=== PATIENT | male | born 1985 | race Two or more races ===

== ENCOUNTER 2016-10-15 14:18 | Emergency (ER) | payer OTHER ==
[2016-10-15 14:56] VITALS: BP 123/75
--- NOTE | 2016-10-15 16:17 | RADIOLOGY REPORT (SQ) ---
EXAM DESCRIPTION: CT ABD/PELVIS NO ORAL OR IV COMPLETED DATE/TIME: 10/15/2016 4:03 pm REASON FOR STUDY: pain hematuria COMPARISON: None. TECHNIQUE: CT scan of the abdomen and pelvis performed without intravenous or oral contrast. Images reviewed with lung, soft tissue, and bone windows. Reconstructed coronal and sagittal MPR images revi ewed. All images stored on PACS. All CT scanners at this facility use dose modulation, iterative reconstruction, and/or weight based d osing when appropriate to reduce radiation dose to as low as reasonably achievable (ALARA). [facility]: Dose Right [facility]: CareDose [facility]: Dose Right [facility]: Teradose 4D [facility]: Smart [employer] RADIATION DOSE: Up-to-date CT equipment and radiation dose reduction techniques were employed. CTDIv ol: 6.0 mGy. DLP: 337 mGy-cm.mGy. LIMITATIONS: None. FINDINGS: LOWER CHEST: No significant findings. No nodules or infiltrates. NON-CONTRASTED LIVER, SPLEEN, ADRENALS: Evaluation limited by lack of IV contrast. No identified sign ificant masses. PANCREAS: No masses. No peripancreatic inflammatory changes. GALLBLADDER: No identified stones by CT criteria. No inflammatory changes to suggest cholecystitis. RIGHT KIDNEY AND URETER: No suspicious masses. Assessment limited by lack of IV contrast. No signif icant calcifications. No hydronephrosis or hydroureter. LEFT KIDNEY AND URETER: No suspicious masses. Assessment limited by lack of IV contrast. No signifi cant calcifications. No hydronephrosis or hydroureter. AORTA AND RETROPERITONEUM: No aneurysm. No retroperitoneal masses or adenopathy. BOWEL AND PERITONEAL CAVITY: No obvious masses or inflammatory changes. No free fluid. APPENDIX: Normal. PELVIS, BLADDER, AND ABDOMINAL WALL:No abnormal masses. No free fluid. Bladder normal. BONES: No significant findings. OTHER: No other significant finding. IMPRESSION: NO SIGNIFICANT OR ACUTE PROCESS IN THE ABDOMEN OR PELVIS. TECHNICAL DOCUMENTATION: JOB ID: [id number] Quality ID # [id number]: Final reports with documentation of one or more dose reduction techniques (e.g., Au tomated exposure control, adjustment of the mA and/or kV according to patient size, use of iterative reconstruction technique) 2010 [employer]- All Rights Reserved
[2016-10-15 16:24] LABS: AMORPHOUS SEDIMENT,URINE TRACE /HPF; APPEARANCE,URINE SLIGHTLY-CLOUDY; BILIRUBIN,URINE NEGATIVE (NEGATIVE); GLUCOSE, URINE NEGATIVE (NEGATIVE); KETONES,URINE NEGATIVE (NEGATIVE); LEUKOCYTE ESTERASE,URINE LARGE (NEGATIVE); NITRITE,URINE NEGATIVE (NEGATIVE); PROTEIN,URINE NEGATIVE (NEGATIVE); URINE SPECIFIC GRAVITY 1.009; UROBILINOGEN,URINE NEGATIVE mg/dL (<2.0)
[2016-10-15 16:30] LABS: URINE BARBITURATES SCREEN NEGATIVE; URINE METHADONE SCREEN NEGATIVE; URINE OPIATES LOW NEGATIVE; URINE PHENCYCLIDINE SCREEN NEGATIVE
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
[2016-10-15] MEDS ORDERED: CEFTRIAXONE INJ 1000 MG VIAL IM ONE (19:21)
[2016-10-15] MEDS ORDERED: AZITHROMYCIN 250 MG TABLET PO ONE (19:22)
== END 2016-10-15 20:17 | disposition home or self-care (01) ==
LOC: ER 14:18
DX: S30.1XXA Contusion of abdominal wall, initial encounter (principal); N39.0 Urinary tract infection, site not specified; R31.9 Hematuria, unspecified; R11.10 Vomiting, unspecified; F17.200 Nicotine dependence, unspecified, uncomplicated; Y04.2XXA Assault by strike against or bumped into by another person, initial encounter; Y92.143 Cell of prison as the place of occurrence of the external cause; Z88.6 Allergy status to analgesic agent
CPT/HCPCS: 99284; 96372; 81001; 80307; 74176; 74177; J0696

== ENCOUNTER 2017-12-17 04:20 | Emergency (ER) | payer SELFPAY ==
[2017-12-17 07:39] VITALS: BP 126/81
== END 2017-12-17 09:10 | disposition left against medical advice (07) ==
LOC: ER 04:20
DX: Z53.21 Procedure and treatment not carried out due to patient leaving prior to being seen by health care provider (principal)

== ENCOUNTER 2017-12-30 23:21 | Emergency (ER) | payer SELFPAY ==
[2017-12-31] MEDS ORDERED: NORMAL SALINE 1000 ML 1,000 ML IV ONE (00:18)
[2017-12-31] MEDS ORDERED: FENTANYL CITRATE INJ/PF 100 MCG/2 ML AMPUL IV ONE (00:24)
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
[2017-12-31 01:21] LABS: ABSOLUTE BASOPHILS # (AUTO) 0.1 10^3/uL (0.0-0.2); ABSOLUTE EOSINOPHILS # (AUTO) 0.2 10^3/uL (0.0-0.6); ABSOLUTE LYMPHOCYTES (AUTO) 2.3 10^3/uL (0.5-4.7); ABSOLUTE MONOCYTES (AUTO) 0.6 10^3/uL (0.1-1.4); ABSOLUTE NEUT (AUTO) 3.3 10^3/uL (1.7-8.2); BASOPHILS % (AUTO) 1.2 % (0-2); EOSINOPHILS % (AUTO) 3.5 % (0-6); HEMATOCRIT 43.1 % (37.9-51.0); HEMOGLOBIN 14.6 g/dL (13.5-17.0); LYMPHOCYTES % (AUTO) 35.7 % (13-45); MEAN CORPUSCULAR HEMOGLOBIN 31.3 pg (27.0-33.4); MEAN CORPUSCULAR HGB CONC 33.9 g/dL (32.0-36.0); MEAN CORPUSCULAR VOLUME 92 fl (80-97); MONOCYTES % (AUTO) 9.6 % (3-13); PLATELET COUNT 259 10^3/uL (150-450); RED BLOOD COUNT 4.67 10^6/uL (4.35-5.55); RED CELL DISTRIBUTION WIDTH 14.7 % (11.5-14.0); TOTAL CELLS COUNTED % (AUTO) 100 %; WHITE BLOOD COUNT 6.5 10^3/uL (4.0-10.5)
[2017-12-31 01:35] LABS: ALANINE AMINOTRANSFERASE 332 U/L (21-72); ALBUMIN 4.5 g/dL (3.5-5.0); ALKALINE PHOSPHATASE 61 U/L (38-126); ANION GAP 6 (5-19); ASPARTATE AMINO TRANSFERASE 152 U/L (17-59); BILIRUBIN,DIRECT 0.5 mg/dL (0.0-0.4); BILIRUBIN,TOTAL 0.9 mg/dL (0.2-1.3); BLOOD UREA NITROGEN 17 mg/dL (7-20); CALCIUM 9.2 mg/dL (8.4-10.2); CARBON DIOXIDE 32 mmol/L (22-30); CHLORIDE 104 mmol/L (98-107); GLUCOSE 54 mg/dL (75-110); POTASSIUM 4.7 mmol/L (3.6-5.0); SODIUM 141.7 mmol/L (137-145); TOTAL PROTEIN 7.6 g/dL (6.3-8.2)
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
[2017-12-31 04:53] LABS: APPEARANCE,URINE SLIGHTLY-CLOUDY; BILIRUBIN,URINE NEGATIVE (NEGATIVE); COLOR,URINE YELLOW; GLUCOSE, URINE NEGATIVE (NEGATIVE); KETONES,URINE NEGATIVE (NEGATIVE); LEUKOCYTE ESTERASE,URINE LARGE (NEGATIVE); NITRITE,URINE NEGATIVE (NEGATIVE); PROTEIN,URINE NEGATIVE (NEGATIVE); UROBILINOGEN,URINE NEGATIVE mg/dL (<2.0)
[2017-12-31 04:54] LABS: URINE SPECIFIC GRAVITY > 1.060
[2017-12-31 07:29] VITALS: BP 112/68
[2018-01-01 06:38] LABS: HEPATITIS A AB IGM Negative (Negative); HEPATITIS B CORE AB IGM Negative (Negative); HEPATITS B SURFACE ANTIGEN Negative (Negative)
[2018-01-01 07:14] LABS: HEPATITIS C VIRUS ANTIBODY >11.0 s/co ratio (0.0-0.9)
== END 2017-12-31 05:50 | disposition home or self-care (01) ==
LOC: ER 23:21
DX: S37.011A Minor contusion of right kidney, initial encounter (principal); R74.8 Abnormal levels of other serum enzymes; R10.31 Right lower quadrant pain; M25.561 Pain in right knee; V28.4XXA Motorcycle driver injured in noncollision transport accident in traffic accident, initial encounter; Z88.6 Allergy status to analgesic agent; F17.200 Nicotine dependence, unspecified, uncomplicated
CPT/HCPCS: 99284; 96360; 96361; 36415; 85025; 80053; 81001; 80074; 71045; 73564; 74177; J3010; J7030

== ENCOUNTER 2018-01-24 09:48 | Emergency (ER) | payer SELFPAY ==
[2018-01-24] MEDS ORDERED: DEXTROSE 5%-WATER 250 ML with NOREPINEPHRINE BITARTRATE 4 MG IV PRN ×2 (10:10)
[2018-01-24] MEDS ORDERED: DEXTROSE 5%-WATER 250 ML with PHENYLEPHRINE HCL 40 MG IV PRN ×2 (10:11)
[2018-01-24] MEDS ORDERED: PHENYLEPHRINE HCL INJ/PF 10 MG/1 ML SDV ONE (10:27)
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
[2018-01-24 11:09] LABS: HEMATOCRIT 41.2 % (37.9-51.0); HEMOGLOBIN 12.8 g/dL (13.5-17.0); MEAN CORPUSCULAR HEMOGLOBIN 31.5 pg (27.0-33.4); MEAN CORPUSCULAR HGB CONC 31.1 g/dL (32.0-36.0); PLATELET COUNT 199 10^3/uL (150-450); RED BLOOD COUNT 4.07 10^6/uL (4.35-5.55); WHITE BLOOD COUNT 12.3 10^3/uL (4.0-10.5)
[2018-01-24 11:11] LABS: MEAN CORPUSCULAR VOLUME 101 fl (80-97)
[2018-01-24 11:12] LABS: APPEARANCE,URINE SLIGHTLY-CLOUDY; BILIRUBIN,URINE NEGATIVE (NEGATIVE); COLOR,URINE YELLOW; GLUCOSE, URINE NEGATIVE (NEGATIVE); KETONES,URINE NEGATIVE (NEGATIVE); LEUKOCYTE ESTERASE,URINE NEGATIVE (NEGATIVE); NITRITE,URINE NEGATIVE (NEGATIVE); PROTEIN,URINE 30 mg/dL (NEGATIVE); URINE SPECIFIC GRAVITY 1.028
[2018-01-24 11:16] LABS: ABSOLUTE LYMPHOCYTES# (MANUAL) 8.7 10^3/uL (0.5-4.7); ABSOLUTE MONOCYTES # (MANUAL) 0.6 10^3/uL (0.1-1.4); ABSOLUTE NEUTROPHILS# (MANUAL) 2.8 10^3/uL (1.7-8.2); BAND NEUTROPHILS % (MANUAL) 5 % (3-5); BASOPHILS % (MANUAL) 0 % (0-2); EOSINOPHILS % (MANUAL) 1 % (0-6); METAMYELOCYTES % (MANUAL) 2 % (0); MONOCYTES % (MANUAL) 5 % (3-13); PLATELET COMMENT ADEQUATE; POIKILOCYTOSIS 2+; SEGMENTED NEUTROPHILS % (MAN) 16 % (42-78); TOTAL CELLS COUNTED 100; TOXIC GRANULATION SLIGHT; TOXIC VACUOLATION PRESENT
[2018-01-24 11:17] LABS: BURR CELLS SLIGHT; OVALOCYTES 1+; SCHISTOCYTES SLIGHT
--- NOTE | 2018-01-24 11:17 | ER Document Report ---
ED General - General Chief Complaint: Overdose Stated Complaint: POSSIBLE OVERDOSE Time Seen by Provider: 01/24/18 10:09 Mode of Arrival: Medic Information source: Emergency Med Personnel Cannot obtain history due to: Intubated TRAVEL OUTSIDE OF THE [place] IN LAST 30 DAYS: No - HPI Patient complains to provider of: unresponsive Onset: Other - 32-year-old man that presents after being found down with an unknown downtime of up to 1 hour unresponsive with no pulse at which time CPR was initiated. He also received 20 total milligrams of Narcan prior to arrival, he was found to be in asystolic rhythm with a subsequent conversion to a V tach rhythm which she was shocked for, he subsequently received 6 rounds of epinephrine, multiple shocks, initiated levophed infusion, and then was transported with a Shahbaz airway in place. - Related Data Allergies/Adverse Reactions: codeine [Codeine] Allergy (Verified 04/19/15 10:54) hydrocodone bitartrate [From Vicodin] Allergy (Verified 04/19/15 10:54) Past Medical History - General Information source: Emergency Med Personnel Cannot obtain history due to: Intubated - Social History Smoking Status: Unknown if Ever Smoked Family History: Arthritis, CVA, Hypertension, Malignancy, Other - grandmoother with CHF- Neurological Medical History: Reports: Hx Migraine - cluster Renal/ Medical History: Denies: Hx Peritoneal Dialysis Musculoskeletal Medical History: Reports Hx Musculoskeletal Trauma Traumatic Medical History: Reports: Hx Fractures - hand Past Surgical History: Reports: Hx Orthopedic Surgery - acl repair right knee - Immunizations Immunizations up to date: Yes Hx Diphtheria, Pertussis, Tetanus Vaccination: Yes Review of Systems - Review of Systems -: Yes ROS unobtainable due to patient's medical condition Physical Exam - Vital signs Vitals: Pulse Ox 95 01/24/18 09:48 - General General appearance: Unresponsive In distress: None - HEENT Head: Normocephalic Conjunctiva: Normal Cornea: Other - No corneal reflex Extraocular movements intact: No Pupils: Dilated, Fixed -: bilateral: Nonreactive - Respiratory Respiratory status: Other - No spontaneously initiated breaths Chest status: Other Breath sounds: Rhonchi - Cardiovascular Rhythm: Regular Heart sounds: Normal auscultation Murmur: No - Abdominal Inspection: Normal Tenderness: Nontender - Back Back: Normal - Extremities General upper extremity: Normal inspection, Normal ROM General lower extremity: Normal inspection, Normal ROM - Neurological Neuro grossly intact: No [place] Coma Scale Eye Opening: None [place] Coma Scale Verbal: None Ana Coma Scale Motor: None Ana Coma Scale Total: 3 Speech: Other - Psychological Associated symptoms: Other - Unobtainable Course - Re-evaluation Re-evalutation: 01/24/18 14:59 This 32-year-old man presented for evaluation after being found with an unknown downtime. He received approximately 1 total hours of CPR including 20 mg of Narcan, several shocks, several rounds of epinephrine. He arrived on levo fed with a Shahbaz airway in place. He failed to demonstrate any appreciable purposeful movement over the hour under which she was going CPR as well as his several hours in the emergency department. Patient was brought emergently to the resuscitation room, he was placed on security monitor, subsequently after a large second gauge IV was placed in his right AC made determination to proceed with administration of large volume fluid resuscitation. Administered 2 L of normal saline IV. Subsequently transitioned the patient's levo fed titration upwards to 15 total. He was then transitioned from his Hsahbaz airway to definitive ET tube which is an 8 oh tube. The ET tube was placed and confirmed. An NG was subsequently placed as well. The patient was placed on ventilator SIMV setting with a pressure is her and volume control of 450 mL tidal volume at a rate of 12 initially. Venous blood gas demonstrated the patient was profoundly acidotic and hypercarbic likely because of his prolonged downtime. Increased patient's rate from 12-16 as well as from 450-500 on his tidal volumes. His repeat gas demonstrated improvement. The patient's blood pressure continued to downward trend and was persistently in in hypotensive range as such initiated treatment also with neosynephrine given that I likely think this is systemic distributive shock Obtained patient's previous visit record which demonstrated that he does have a as next of kin, attempted to contact his phone number listed for his , it was a different person. Attempted to contact the other number provided which was previously the patient' s without any answer. Contacted [place] [employer] to do a well-being check at his house, they arrived at the house and asked neighbors about it they note that what sounds like his lives there but she is not there at this time and likely will be back until 5 PM. Also noted some alternative address listed for him previously which 1 of the [place] police officers will attempt to go to to contact his . During this time I contacted [facility] as this patient is demonstrating a profound respiratory acidosis as a result of his arrest, I spoke with Dr. Estrada he states that patient is likely brain and volume in agreement I am uncertain how to proceed at this time given that his next of kin has not been able to be identified. I spoke to our on-call hospitalist who notes that without neurology in house he feels uncomfortable considering this patient for brain testing. As such she thinks that it is most appropriate for this patient undergo transfer to a higher level of care. Given that we are in agreement with this will contact [facility] again. During this time the patient began to demonstrate hypothermia likely as a result of a profound diarrhea which she had started to develop including bloody diarrhea. He has had a profuse persistent bloody and watery diarrhea for several hours now , will plan for initiation of fecal control system. Patient is not required any sedation at this point continues to not demonstrate any purposeful movement. Have spoken to [facility] who agrees to accept this patient in transfer , Dr. TREVIÑO I agrees to receive this patient in the intensive care unit. At this time it is noted that his venous blood gas has improved from the 6.7 range to 7.15 range. His hypercarbia has improved. He continues to require both levo fed as well as Justino-Synephrine. He is still ventilated. His pupillary exam remains fixed and dilated he does not demonstrate any obvious corneal reflex gag or cough. His rectal output continues to be copious. WIll plan for administration of 2 L of NOrmal saline. Have added on COAG studies for possible DIC developing. WIll continue to titrate this patient for a MAP of >70 1550- Contacted [facility] transfer for potential timeline they note that there are 2 rooms currently being cleaned in the medical intensive care unit 1 of which will likely prolong this patient. - Vital Signs Vital signs: Temp Pulse Resp BP Pulse Ox 16 175/120 H 97 01/24/18 15:36 01/24/18 15:36 01/24/18 15:36 - Laboratory Result Diagrams: 01/24/18 09:49 01/24/18 09:49 Laboratory results interpreted by me: 01/24/18 01/24/18 01/24/18 09:49 09:49 09:49 WBC 12.3 H RBC 4.07 L Hgb 12.8 L MCV 101 H D MCHC 31.1 L RDW 15.0 H Seg Neuts % (Manual) 16 L Lymphocytes % (Manual) 70 H Metamyelocytes % 2 H Abs Lymphs (Manual) 8.7 H PT APTT D-Dimer VBG pH 6.73 L* VBG pCO2 131.9 H* VBG HCO3 17.2 L Carbon Dioxide 17 L Anion Gap 22 H Glucose 391 H AST 357 H ALT 350 H Total Protein 5.7 L Albumin 3.0 L Urine Protein Urine Urobilinogen Salicylates < 1.0 L Acetaminophen < 10 L 01/24/18 01/24/18 01/24/18 09:49 10:33 12:53 WBC RBC Hgb MCV MCHC RDW Seg Neuts % (Manual) Lymphocytes % (Manual) Metamyelocytes % Abs Lymphs (Manual) PT 16.1 H APTT 52.1 H D-Dimer 12.14 H VBG pH 7.12 L* VBG pCO2 72.6 H* VBG HCO3 Carbon Dioxide Anion Gap Glucose AST ALT Total Protein Albumin Urine Protein 30 H Urine Urobilinogen 2.0 H Salicylates Acetaminophen Procedures - Intubation Orotracheal Airway evaluation: Normal anatomy Mallampati Classification: Class 2 Intubation method: Orotracheal Blade type: [place] Blade size: 3 Equipment used: Glidescope ETT size: 8.0 ETT secured at: Teeth ETT secured at (cm): 27 Breath Sounds after Intubation: Equal End tidal CO2 confirmed: Yes Ventilator settings: SIMV Tidal volume: 450 FiO2: 50% Respirations: 12 Pressure support: 8 PEEP: 5 Post Intubation Xray: Yes Intubation Complications: No complications - Ultrasound/Bedside Ultrasound/Bedside Ultrasound: Other - FAST exam negative for free fluid or effusion Critical Care Note - Critical Care Note Total time excluding time spent on procedures (mins): 75 Discharge - Discharge Clinical Impression: Cardiac arrest, Hypoxic brain injury, Unresponsive Overdose Qualifiers: Encounter type: initial encounter Injury intent: undetermined intent Qualified Code(s): T50.904A - Poisoning by unspecified drugs, medicaments and biological substances, undetermined, initial encounter Hypothermia Qualifiers: Encounter type: initial encounter Qualified Code(s): T68.XXXA - Hypothermia, initial encounter Hypotension Qualifiers: Hypotension type: unspecified hypotension type Qualified Code(s): I95.9 - Hypotension, unspecified Condition: Critical Disposition: [facility]
[2018-01-24 11:18] LABS: LYMPHOCYTES % (MANUAL) 70 % (13-45)
[2018-01-24 11:19] LABS: BILIRUBIN,DIRECT 0.3 mg/dL (0.0-0.4); BILIRUBIN,TOTAL 0.5 mg/dL (0.2-1.3); BLOOD UREA NITROGEN 16 mg/dL (7-20); CALCIUM 8.4 mg/dL (8.4-10.2); GLUCOSE 391 mg/dL (75-110); TOTAL PROTEIN 5.7 g/dL (6.3-8.2)
[2018-01-24 11:24] LABS: CARBON DIOXIDE 17 mmol/L (22-30); CHLORIDE 102 mmol/L (98-107); SODIUM 140.8 mmol/L (137-145); VENOUS BLOOD BASE EXCESS -20.9 mmol/L; VENOUS BLOOD HCO3 17.2 mmol/L (20-32)
[2018-01-24 11:26] LABS: VENOUS BLOOD PCO2 131.9 mmHg (35-63); VENOUS BLOOD PH 6.73 (7.30-7.42)
--- NOTE | 2018-01-24 11:26 | RADIOLOGY REPORT (SQ) ---
EXAM DESCRIPTION: CT CERVICAL SPINE WITHOUT COMPLETED DATE/TIME: 01/24/2018 11:14 am REASON FOR STUDY: post cardiac arrest edema COMPARISON: None. TECHNIQUE: Axial images acquired through the cervical spine without intravenous contrast. Images re viewed with lung, soft tissue and bone windows. Reconstructed coronal and sagittal MPR images review ed. Images stored on PACS. All CT scanners at this facility use dose modulation, iterative reconstruction, and/or weight based d osing when appropriate to reduce radiation dose to as low as reasonably achievable (ALARA). [facility]: Dose Right [facility]: CareDose [facility]: Dose Right [facility]: Teradose 4D [facility]: [employer] RADIATION DOSE: CT Rad equipment meets quality standard of care and radiation dose reduction techniq ues were employed. CTDIvol: 21.3 mGy. DLP: 617 mGy-cm. mGy. LIMITATIONS: None. FINDINGS: ALIGNMENT: Anatomic. MINERALIZATION: Normal. VERTEBRAL BODIES: No fractures or dislocation. DISCS: No significant disc disease. FACETS, LATERAL MASSES, POSTERIOR ELEMENTS: No fractures. No dislocation. No acute findings. HARDWARE: None in the spine. VISUALIZED RIBS: No fractures. LUNG APICES AND SOFT TISSUES: There is dorsal opacification both lungs. OTHER: No other significant finding. IMPRESSION: 1. Normal cervical spine. 2. Dorsal airspace disease in both lungs. TECHNICAL DOCUMENTATION: JOB ID: [id number] Quality ID # [id number]: Final reports with documentation of one or more dose reduction techniques (e.g., Au tomated exposure control, adjustment of the mA and/or kV according to patient size, use of iterative reconstruction technique) 2010 [employer]- All Rights Reserved Reading location - IP/workstation name: [email or web address]
--- NOTE | 2018-01-24 11:27 | RADIOLOGY REPORT (SQ) ---
EXAM DESCRIPTION: CT HEAD WITHOUT COMPLETED DATE/TIME: 01/24/2018 11:14 am REASON FOR STUDY: post cardiac arrest edema COMPARISON: None. TECHNIQUE: Axial images acquired through the brain without intravenous contrast. Images reviewed wi th bone, brain and subdural windows. Additional sagittal and coronal reconstructions were generated. Images stored on PACS. All CT scanners at this facility use dose modulation, iterative reconstruction, and/or weight based d osing when appropriate to reduce radiation dose to as low as reasonably achievable (ALARA). [facility]: Dose Right [facility]: CareDose [facility]: Dose Right [facility]: Teradose 4D [facility]: [employer] RADIATION DOSE: CT Rad equipment meets quality standard of care and radiation dose reduction techniq ues were employed. CTDIvol: 53.2 mGy. DLP: 1044 mGy-cm. mGy. LIMITATIONS: None. FINDINGS: VENTRICLES: Normal size and contour. CEREBRUM: No masses. No hemorrhage. No midline shift. No evidence for acute infarction. Global poo r amato-white matter differentiation suspicious for cerebral hypoxia. CEREBELLUM: No masses. No hemorrhage. No alteration of density. No evidence for acute infarction. EXTRAAXIAL SPACES: No fluid collections. No masses. ORBITS AND GLOBE: No intra- or extraconal masses. Normal contour of globe without masses. CALVARIUM: No fracture. PARANASAL SINUSES: No fluid or mucosal thickening. SOFT TISSUES: No mass or hematoma. OTHER: No other significant finding. IMPRESSION: Concerning for cerebral hypoxia. No hemorrhage. EVIDENCE OF ACUTE STROKE: NO. COMMENT: Quality ID # [id number]: Final reports with documentation of one or more dose reduction techniques (e.g., Automated exposure control, adjustment of the mA and/or kV according to patient size, use of iterative reconstruction technique) TECHNICAL DOCUMENTATION: JOB ID: [id number] [employer]- All Rights Reserved Reading location - IP/workstation name: [email or web address]
[2018-01-24 11:32] LABS: ACETAMINOPHEN < 10 ug/mL (10-30); ALCOHOL < 10 mg/dL (NONE DETECTED); SALICYLATE < 1.0 mg/dL (2.0-20.0)
[2018-01-24 11:32] LABS: URINE BARBITURATES SCREEN NEGATIVE; URINE BENZODIAZEPINES SCREEN NEGATIVE; URINE COCAINE SCREEN UNCONFIRMED POSITIVE; URINE MARIJUANA (THC) SCREEN NEGATIVE; URINE METHADONE SCREEN NEGATIVE; URINE PHENCYCLIDINE SCREEN NEGATIVE
[2018-01-24 11:36] LABS: ALANINE AMINOTRANSFERASE 350 U/L (21-72); ALKALINE PHOSPHATASE 96 U/L (38-126); ASPARTATE AMINO TRANSFERASE 357 U/L (17-59); POTASSIUM 4.4 mmol/L (3.6-5.0)
[2018-01-24] MEDS ORDERED: RINGERS SOLUTION,LACTATED 1,000 ML IV ONE (11:38)
[2018-01-24 11:41] LABS: ANION GAP 22 (5-19)
[2018-01-24 11:42] LABS: CREATINE KINASE MB 3.37 ng/mL (<4.55)
[2018-01-24 11:44] LABS: TROPONIN I 0.055 ng/mL
--- NOTE | 2018-01-24 12:20 | RADIOLOGY REPORT (SQ) ---
EXAM DESCRIPTION: CHEST SINGLE VIEW COMPLETED DATE/TIME: 01/24/2018 11:57 am REASON FOR STUDY: NG TUBE PLACEMENT COMPARISON: EARLIER THE SAME DAY. NUMBER OF VIEWS: One view. TECHNIQUE: Single frontal radiographic image of the chest acquired. LIMITATIONS: None. FINDINGS: LUNGS AND PLEURA: Stable appearance. MEDIASTINUM AND HEART: Stable heart size and mediastinal structures. SUPPORT DEVICES: Nasogastric tube tip overlies the stomach. BONY STRUCTURES: No acute findings. HARDWARE: None. OTHER: No other significant finding. IMPRESSION: NASOGASTRIC TUBE IN THE STOMACH. Reading location - IP/workstation name: [email or web address]
--- NOTE | 2018-01-24 12:28 | EKG REPORT ---
SEVERITY:- ABNORMAL ECG - SINUS RHYTHM NONSPECIFIC INTRAVENTRICULAR CONDUCTION DELAY : Confirmed by: Samina Richardson MD 24-Jan-2018 12:27:43
[2018-01-24 13:17] LABS: VENOUS BLOOD BASE EXCESS -7.7 mmol/L; VENOUS BLOOD HCO3 23.1 mmol/L (20-32)
[2018-01-24 13:26] LABS: VENOUS BLOOD PCO2 72.6 mmHg (35-63); VENOUS BLOOD PH 7.12 (7.30-7.42)
[2018-01-24 13:42] LABS: INTERNATIONAL RATION (INR) 1.23; PROTHROMBIN TIME 16.1 SEC (11.4-15.4)
[2018-01-24 13:43] LABS: FIBRINOGEN 217 mg/dL (209-497); PARTIAL THROMBOPLASTIN TIME 52.1 SEC (23.5-35.8)
[2018-01-24 14:01] LABS: D-DIMER 12.14 ug/mL (0.00-0.50)
[2018-01-24] MEDS ORDERED: NORMAL SALINE 1000 ML 1,000 ML IV PRN (14:53)
[2018-01-24] MEDS ORDERED: NOREPINEPHRINE BITARTRATE INJ/PF 4 MG/4 ML SDV IV ONE ×2 (14:53→19:30)
[2018-01-24 15:39] LABS: HEMATOCRIT 49.9 % (37.9-51.0); MEAN CORPUSCULAR HEMOGLOBIN 31.5 pg (27.0-33.4); MEAN CORPUSCULAR HGB CONC 33.7 g/dL (32.0-36.0); PLATELET COUNT 273 10^3/uL (150-450); RED BLOOD COUNT 5.34 10^6/uL (4.35-5.55); RED CELL DISTRIBUTION WIDTH 14.1 % (11.5-14.0)
[2018-01-24 16:01] LABS: HEMOGLOBIN 16.8 g/dL (13.5-17.0)
[2018-01-24 16:02] LABS: MEAN CORPUSCULAR VOLUME 93 fl (80-97)
[2018-01-24 16:06] LABS: ABSOLUTE MONOCYTES # (MANUAL) 0.9 10^3/uL (0.1-1.4); ABSOLUTE NEUTROPHILS# (MANUAL) 26.1 10^3/uL (1.7-8.2); BAND NEUTROPHILS % (MANUAL) 9 % (3-5); BASOPHILS % (MANUAL) 0 % (0-2); EOSINOPHILS % (MANUAL) 0 % (0-6); LYMPHOCYTES % (MANUAL) 8 % (13-45); METAMYELOCYTES % (MANUAL) 1 % (0); MONOCYTES % (MANUAL) 3 % (3-13); SEGMENTED NEUTROPHILS % (MAN) 77 % (42-78); TOTAL CELLS COUNTED 100
[2018-01-24 16:08] LABS: ANISOCYTOSIS SLIGHT; PLATELET COMMENT ADEQUATE; TOXIC GRANULATION SLIGHT; TOXIC VACUOLATION PRESENT
[2018-01-24 16:10] LABS: OVALOCYTES SLIGHT; POIKILOCYTOSIS SLIGHT
[2018-01-24 18:15] LABS: VENOUS BLOOD BASE EXCESS -8.1 mmol/L; VENOUS BLOOD HCO3 19.2 mmol/L (20-32); VENOUS BLOOD PCO2 45.2 mmHg (35-63); VENOUS BLOOD PH 7.25 (7.30-7.42)
[2018-01-24 19:52] VITALS: BP 92/61
[2018-01-25 10:04] LABS: PATH REVIEW PATHOLOGIST REVIEWED
[2018-01-25 10:05] LABS: PATH REVIEW PATHOLOGIST REVIEWED
== END 2018-01-24 19:52 | disposition short-term general hospital (02) ==
LOC: ER 09:48
DX: I46.9 Cardiac arrest, cause unspecified (principal); S06.899A Other specified intracranial injury with loss of consciousness of unspecified duration, initial encounter; T68.XXXA Hypothermia, initial encounter; I95.9 Hypotension, unspecified; X58.XXXA Exposure to other specified factors, initial encounter; Y92.009 Unspecified place in unspecified non-institutional (private) residence as the place of occurrence of the external cause
CPT/HCPCS: 93005; 99291; 99292; 96361; 51702; 96365; 96366; 36415; 82553; 80307 ×4; 85025; 85384; 85610; 85730; 80053; 81001; 84484; 85379; 82803; 71045; 70450; 72125; 94660; 93010; 31500; J3490; J2370; J7060; J7030; J7120